=== PATIENT | female | born 1960 | race African-American/Black ===

== ENCOUNTER 2016-11-12 12:29 | Emergency (ER) | payer OTHER ==
[~2016-11-12 12:29] MED LIST: HCTZ; PROPANOLOL
[2016-11-12 14:27] VITALS: BP 154/106
== END 2016-11-12 15:03 | disposition home or self-care (01) ==
LOC: ED 12:29
DX: I10 Essential (primary) hypertension (principal); G43.909 Migraine, unspecified, not intractable, without status migrainosus; Z88.2 Allergy status to sulfonamides; Z88.1 Allergy status to other antibiotic agents

== ENCOUNTER 2018-11-26 15:58 | Emergency (ER) | payer OTHER ==
[~2018-11-26] VITALS: Ht 160 cm; Wt 84.8 kg
[2018-11-26 16:03] VITALS: BP 126/80; Ht 160 cm; Wt 84.8 kg
== END 2018-11-26 18:00 | disposition left against medical advice (07) ==
LOC: ED 15:58
DX: Z53.21 Procedure and treatment not carried out due to patient leaving prior to being seen by health care provider (principal)